=== PATIENT | male | born 1995 | race Caucasian/White ===

== ENCOUNTER 2016-11-12 13:27 | Emergency (ER) | payer OTHER ==
--- NOTE | 2016-11-12 14:11 | ED ORDER SUMMARY ---
..... Patient: KACIE PICKETT OrderSheet [facility] VisitID: [id number] [address] [place] [address] 20y, M Registration Date/Time: 11/12/2016 ORDER SHEET Weight: 74.8 kg (stated) Allergies: No Known Drug Allergy GENERAL ORDERS: Visual Acuity (14:07 11/12/2016 Leticia Ernandez) (14:20 Anthony Reveles) MEDICATION ORDERS: IV FLUIDS: ORDER SHEET NOTES: [Electronically signed by Bárbara Blair R.N. (14:11/12/2016)] [Electronically signed by Vidya Horta P.A.-C (14:11/12/2016)] [Electronically locked/signed by Bárbara Blair R.N. (14:11/12/2016)]
--- NOTE | 2016-11-12 14:11 | ED ORDER SUMMARY ---
..... Patient: KACIE PICKETT OrderSheet [facility] VisitID: [id number] [address] [place] [address] 20y, M Registration Date/Time: 11/12/2016 ORDER SHEET Weight: 74.8 kg (stated) Allergies: No Known Drug Allergy GENERAL ORDERS: Visual Acuity (14:07 11/12/2016 Leticia Ernandez) (14:20 Anthony Reveles) MEDICATION ORDERS: IV FLUIDS: ORDER SHEET NOTES: [Electronically signed by Bárbara Blair R.N. (14:11/12/2016)] [Electronically signed by Vidya Horta P.A.-C (14:11/12/2016)] [Electronically locked/signed by Bárbara Blair R.N. (14:11/12/2016)]
--- NOTE | 2016-11-12 14:11 | ED NURSING NOTES ---
Clinical Report - Nurses [facility] [address] [place] [address] 11/12/2016 13:30 Patient: KACIE PICKETT TRIAGE Triage time 13:45 Nov 12 2016. Acuity: LEVEL 4. Chief Complaint: FOREIGN BODY TO RIGHT EYE. --13:49 Bárbara Blair R.N. 13:45 11/12/16. BP: 128/58. HR: 83. RR: 16. O2 saturation: 100%. Temp: 97.9 F. Pain level now: 01/08. --13:49 Bárbara Blair R.N. 14:21 11/12/16. VISUAL ACUITY: Visual acuity performed without corrective lenses: left eye 20/30; right eye 20/30; both eyes 20/30. --14:21 Bárbara Blair R.N. Weight: 74.8 kg stated. Height/Length: 72 inches Per Patient. BMI: 22.4. --13:45 Bárbara Blair R.N. Medications None. --13:48 Bárbara Blair R.N. Medication/allergy information source: the patient. --13:49 Bárbara Blair R.N. Allergies No Known Drug Allergy. --13:48 Bárbara Blair R.N. History Arrived by private vehicle. Historian: patient. Accompanied by family. This started just prior to arrival. He sustained injury. 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 Flushed out eye immediately. [place] something scraping his eyelid and could see a dot on left side of iris. 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 PAST MEDICAL HX: Has had a prior eye injury. Immunizations: up-to-date. SOCIAL HX: Former smoker. No alcohol use or drug use. No infectious disease exposure. ABUSE ASSESSMENT: No report of abuse. SELF HARM ASSESSMENT: A self harm assessment was performed. The patient answered "no" to the question "Have you recently felt down, depressed, or hopeless?", "Have you noticed less interest or pleasure in doing things?", "Do you have thoughts of harming or killing yourself?", "Are you here because you tried to hurt yourself?", "Have you ever tried to hurt yourself before today?", "Have you recently had thoughts about harming or killing others?" and "Do you have any dangerous items in your possession?". FALL RISK ASSESSMENT: Fall risk assessment completed. No fall risk identified. NUTRITIONAL RISK ASSESSMENT: The nutritional risk assessment revealed no deficiencies. FUNCTIONAL ASSESSMENT: Functional assessment: no impairments noted. LEARNING NEEDS ASSESSMENT: The learning needs assessment revealed no barriers. SKIN INTEGRITY ASSESSMENT: Skin integrity risk assessment completed. No skin integrity risk identified. --13:49 Bárbara Blair R.N. PROBLEMS: Vomiting. Abnormal Liver Function Test. Corneal Foreign Body. --13:48 Bárbara Blair R.N. ADDITIONAL SURGERIES: no known surgeries. Interventions ID band on patient. --13:49 Bárbara Blair R.N. PHYSICAL ASSESSMENT 13:45 11/12/16. Ambulatory to room. GENERAL / NEURO / PSYCH: Alert. Appears in no acute distress. HEENT: No facial asymmetry noted. Pupils equal, round and reactive to light. Conjunctival findings present (WNL). EOM intact. No photophobia, pale conjunctivae or scleral icterus. SKIN: Skin is warm and dry. Normal skin turgor. --13:52 Bárbara Blair R.N. 13:45 11/12/16. GENERAL / NEURO / PSYCH: No double vision. HEENT: No visual field deficit or nystagmus. ( no FB visible). No ocular injury. --14:23 Bárbara Blair R.N. NURSING PROGRESS NOTES 13:45 11/12/16. The initial plan of care for this patient includes an assessment with efforts to address the presence of pain. This plan of care was discussed with the patient. Reassurance given. Patient identifiers checked. Side rails up x 1. Bed placed in lowest position. Brakes of bed on. Patient ready for evaluation. --13:57 Bárbara Blair R.N. DISPOSITION / DISCHARGE 14:22 11/12/16. Condition at departure: improved and stable. The goals identified in the patient's plan of care were met. No learning barriers present. Discharge instructions provided and reviewed with the patient. Reviewed medication(s) side effects, precautions, dosing and course information. Prescription(s) given to the patient. Reviewed referral to an county coroner for followup. Patient verbalized understanding. Written instructions provided in [place]. The patient was discharged home and accompanied by spouse. He left the Emergency Department ambulatory and via private vehicle. Patient driving. FALL RISK ASSESSMENT: Fall risk assessment completed. No fall risk identified. --14:22 Bárbara Blair R.N. 13:45 11/12/16. BP: 128/58. HR: 83. RR: 16. O2 saturation: 100%. Temp: 97.9 F. Pain level now: 01/08. --14:22 Bárbara Blair R.N. Departure time: 14:Nov 12 2016. --14:22 Bárbara Blair R.N. Locked/Released at 11/12/2016 14:23 by Bárbara Blair R.N.
--- NOTE | 2016-11-12 14:11 | ED NURSING NOTES ---
Clinical Report - Nurses [facility] [address] [place] [address] 11/12/2016 13:30 Patient: KACIE PICKETT TRIAGE Triage time 13:45 Nov 12 2016. Acuity: LEVEL 4. Chief Complaint: FOREIGN BODY TO RIGHT EYE. --13:49 Bárbara Blair R.N. 13:45 11/12/16. BP: 128/58. HR: 83. RR: 16. O2 saturation: 100%. Temp: 97.9 F. Pain level now: 01/08. --13:49 Bárbara Blair R.N. 14:21 11/12/16. VISUAL ACUITY: Visual acuity performed without corrective lenses: left eye 20/30; right eye 20/30; both eyes 20/30. --14:21 Bárbara Blair R.N. Weight: 74.8 kg stated. Height/Length: 72 inches Per Patient. BMI: 22.4. --13:45 Bárbara Blair R.N. Medications None. --13:48 Bárbara Blair R.N. Medication/allergy information source: the patient. --13:49 Bárbara Blair R.N. Allergies No Known Drug Allergy. --13:48 Bárbara Blair R.N. History Arrived by private vehicle. Historian: patient. Accompanied by family. This started just prior to arrival. He sustained injury. 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 Flushed out eye immediately. [place] something scraping his eyelid and could see a dot on left side of iris. 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 PAST MEDICAL HX: Has had a prior eye injury. Immunizations: up-to-date. SOCIAL HX: Former smoker. No alcohol use or drug use. No infectious disease exposure. ABUSE ASSESSMENT: No report of abuse. SELF HARM ASSESSMENT: A self harm assessment was performed. The patient answered "no" to the question "Have you recently felt down, depressed, or hopeless?", "Have you noticed less interest or pleasure in doing things?", "Do you have thoughts of harming or killing yourself?", "Are you here because you tried to hurt yourself?", "Have you ever tried to hurt yourself before today?", "Have you recently had thoughts about harming or killing others?" and "Do you have any dangerous items in your possession?". FALL RISK ASSESSMENT: Fall risk assessment completed. No fall risk identified. NUTRITIONAL RISK ASSESSMENT: The nutritional risk assessment revealed no deficiencies. FUNCTIONAL ASSESSMENT: Functional assessment: no impairments noted. LEARNING NEEDS ASSESSMENT: The learning needs assessment revealed no barriers. SKIN INTEGRITY ASSESSMENT: Skin integrity risk assessment completed. No skin integrity risk identified. --13:49 Bárbara Blair R.N. PROBLEMS: Vomiting. Abnormal Liver Function Test. Corneal Foreign Body. --13:48 Bárbara Blair R.N. ADDITIONAL SURGERIES: no known surgeries. Interventions ID band on patient. --13:49 Bárbara Blair R.N. PHYSICAL ASSESSMENT 13:45 11/12/16. Ambulatory to room. GENERAL / NEURO / PSYCH: Alert. Appears in no acute distress. HEENT: No facial asymmetry noted. Pupils equal, round and reactive to light. Conjunctival findings present (WNL). EOM intact. No photophobia, pale conjunctivae or scleral icterus. SKIN: Skin is warm and dry. Normal skin turgor. --13:52 Bárbara Blair R.N. 13:45 11/12/16. GENERAL / NEURO / PSYCH: No double vision. HEENT: No visual field deficit or nystagmus. ( no FB visible). No ocular injury. --14:23 Bárbara Blair R.N. NURSING PROGRESS NOTES 13:45 11/12/16. The initial plan of care for this patient includes an assessment with efforts to address the presence of pain. This plan of care was discussed with the patient. Reassurance given. Patient identifiers checked. Side rails up x 1. Bed placed in lowest position. Brakes of bed on. Patient ready for evaluation. --13:57 Bárbara Blair R.N. DISPOSITION / DISCHARGE 14:22 11/12/16. Condition at departure: improved and stable. The goals identified in the patient's plan of care were met. No learning barriers present. Discharge instructions provided and reviewed with the patient. Reviewed medication(s) side effects, precautions, dosing and course information. Prescription(s) given to the patient. Reviewed referral to an tool grinder operator external for followup. Patient verbalized understanding. Written instructions provided in Thai. The patient was discharged home and accompanied by spouse. He left the Emergency Department ambulatory and via private vehicle. Patient driving. FALL RISK ASSESSMENT: Fall risk assessment completed. No fall risk identified. --14:22 Bárbara Blair R.N. 13:45 11/12/16. BP: 128/58. HR: 83. RR: 16. O2 saturation: 100%. Temp: 97.9 F. Pain level now: 01/08. --14:22 Bárbara Blair R.N. Departure time: 14:Nov 12 2016. --14:22 Bárbara Blair R.N. Locked/Released at 11/12/2016 14:23 by Bárbara Blair R.N.
--- NOTE | 2016-11-12 14:11 | ED CLINICAL REPORT ---
Clinical Report - Physicians/Mid Levels Located Within [facility] [address] [address] 11/12/2016 13:30 Patient: KACIE PICKTET Time Seen: 1410Nov 12 2016. Arrived- By private vehicle. Historian- patient. HISTORY OF PRESENT ILLNESS Chief Complaint: EYE PAIN and REDNESS. This started just prior to arrival, involves the right eye and is characterized as mild. The patient did not sustain an injury. This occurred at work. Not injured from contact lenses. No direct trauma to the eyes. Eye pain and discomfort. ( patient was working, when he had a metal part fly into his right eye, and had foreign body sensation, tended to irrigate the eye at work, however had discomfort, on the way here, patient reports the sensation of FB resolved, the discomfort has been improving now. Similar history to the right eye of of days, with previous use of 2 years previously. no contact eye wearing. occurred just prior to arrival.). REVIEW OF SYSTEMS All systems otherwise negative, except as recorded above. PAST HISTORY Prior eye injury. He does not wear contact lenses. SOCIAL HISTORY Former smoker. No alcohol use or drug use. PHYSICAL EXAM Vital Signs: 11/12/2016 13:45 BP: 128/58. HR: 83. RR: 16. O2 saturation: 100%. Temp: 97.9 F. Pain level now: 3/10. Appearance: Alert. HEENT: Ears normal. Head appears normal to external inspection. Rt Eye: Circular shaped area of fluorescein dye uptake on the cornea (smallest medial aspect). Pupil not dilated. No hyphema, eyelid edema or erythema or conjunctival edema or foreign body. No EOM palsy. No stye present. No foreign body under the eyelid. No exudate present. Eyes: Visual acuity noted- see nurse's notes. Right eyelid everted for examination. Right cornea examined with fluorescein stain. Eyelids appear normal to inspection. Conjunctivae and sclerae appear normal to inspection. Corneas appear normal to inspection. Pupils equal, round and reactive to light. Accommodation normal. EOMs intact. Periorbital areas appear normal to inspection. Right eye examined with slit lamp. Anterior chambers clear. Lt Eye: Left eye exam normal. Neck: Neck supple. CVS: Normal heart rate and rhythm. Heart sounds normal. Respiratory: No respiratory distress. Breath sounds normal. Neuro: Oriented X 3. PROGRESS AND PROCEDURES Course of Care: patient here in the ER, with improvement of his symptoms, no signs of PE, small small small fluorescein uptake, consistent with recent injury and history. Patient will be covered with antibiotics, preventatively. Noncontact lens wearing, nonproductive lens wearing. no other signs of injury/ fb. 11/12/2016 13:45 BP: 128/58. HR: 83. RR: 16. O2 saturation: 100%. Temp: 97.9 F. Pain level now: 3/10. Patient is stable. Physical exam findings are improved. Symptoms better. Patient/family counseled. Disposition: Discharged. CLINICAL IMPRESSION Small corneal abrasion to the right eye. INSTRUCTIONS Do not work today, tomorrow. ([facility] ). Prescription Medications: Polytrim ophthalmic solution: Instill 1 drop into affected eye every 3 hours while awake (max 6 doses per day) for 1 week. Dispense five (5) mL. No refills. Substitution is permissible. OTC Medications: Take OTC medications according to label instructions. Available over the counter. Acetaminophen (available over the counter): take according to label instructions. Motrin (available over the counter): take according to label instructions. Follow-up: Follow up with your doctor in three days. (Electronically signed by Vidya Horta P.A.-C 11/12/2016 14:23)
--- NOTE | 2016-11-12 14:11 | ED CLINICAL REPORT ---
Clinical Report - Physicians/Mid Levels [facility] [address] [place] [address] 11/12/2016 13:30 Patient: KACIE PICKETT Time Seen: 1410Nov 12 2016. Arrived- By private vehicle. Historian- patient. HISTORY OF PRESENT ILLNESS Chief Complaint: EYE PAIN and REDNESS. This started just prior to arrival, involves the right eye and is characterized as mild. The patient did not sustain an injury. This occurred at work. Not injured from contact lenses. No direct trauma to the eyes. Eye pain and discomfort. ( patient was working, when he had a metal part fly into his right eye, and had foreign body sensation, tended to irrigate the eye at work, however had discomfort, on the way here, patient reports the sensation of FB resolved, the discomfort has been improving now. Similar history to the right eye of of days, with previous use of 2 years previously. no contact eye wearing. occurred just prior to arrival.). REVIEW OF SYSTEMS All systems otherwise negative, except as recorded above. PAST HISTORY Prior eye injury. He does not wear contact lenses. SOCIAL HISTORY Former smoker. No alcohol use or drug use. PHYSICAL EXAM Vital Signs: 11/12/2016 13:45 BP: 128/58. HR: 83. RR: 16. O2 saturation: 100%. Temp: 97.9 F. Pain level now: 3/10. Appearance: Alert. HEENT: Ears normal. Head appears normal to external inspection. Rt Eye: Circular shaped area of fluorescein dye uptake on the cornea (smallest medial aspect). Pupil not dilated. No hyphema, eyelid edema or erythema or conjunctival edema or foreign body. No EOM palsy. No stye present. No foreign body under the eyelid. No exudate present. Eyes: Visual acuity noted- see nurse's notes. Right eyelid everted for examination. Right cornea examined with fluorescein stain. Eyelids appear normal to inspection. Conjunctivae and sclerae appear normal to inspection. Corneas appear normal to inspection. Pupils equal, round and reactive to light. Accommodation normal. EOMs intact. Periorbital areas appear normal to inspection. Right eye examined with slit lamp. Anterior chambers clear. Lt Eye: Left eye exam normal. Neck: Neck supple. CVS: Normal heart rate and rhythm. Heart sounds normal. Respiratory: No respiratory distress. Breath sounds normal. Neuro: Oriented X 3. PROGRESS AND PROCEDURES Course of Care: patient here in the ER, with improvement of his symptoms, no signs of PE, small small small fluorescein uptake, consistent with recent injury and history. Patient will be covered with antibiotics, preventatively. Noncontact lens wearing, nonproductive lens wearing. no other signs of injury/ fb. 11/12/2016 13:45 BP: 128/58. HR: 83. RR: 16. O2 saturation: 100%. Temp: 97.9 F. Pain level now: 3/10. Patient is stable. Physical exam findings are improved. Symptoms better. Patient/family counseled. Disposition: Discharged. CLINICAL IMPRESSION Small corneal abrasion to the right eye. INSTRUCTIONS Do not work today, tomorrow. ([facility] ). Prescription Medications: Polytrim ophthalmic solution: Instill 1 drop into affected eye every 3 hours while awake (max 6 doses per day) for 1 week. Dispense five (5) mL. No refills. Substitution is permissible. OTC Medications: Take OTC medications according to label instructions. Available over the counter. Acetaminophen (available over the counter): take according to label instructions. Motrin (available over the counter): take according to label instructions. Follow-up: Follow up with your doctor in three days. (Electronically signed by Vidya Horta P.A.-C 11/12/2016 14:23)
--- NOTE | 2016-11-12 14:23 | ED MED RECONCILIATION SUMMARY ---
Patient: KACIE PICKETT Medication Reconciliation Report [facility] VisitID: [id number] [address] [place] [address] 20y, M Registration Date/Time: 11/12/2016 Weight: 74.8 kg Height/Length: 72 in. BMI: 22.4 ALLERGIES: No Known Drug Allergy The patient's Home Medications are listed below: NONE. The source(s) of the original Home Medication information: patient The following Medications were given to the patient in the Emergency Department: None. The following Medications were prescribed to the patient: Take OTC medications according to label instructions. Available over the counter. -- Vidya Horta, P.A.-C Acetaminophen (available over the counter): take according to label instructions. -- Vidya Horta, P.A.-C Motrin (available over the counter): take according to label instructions. -- Vidya Horta, P.A.-C Polytrim ophthalmic solution: Instill 1 drop into affected eye every 3 hours while awake (max 6 doses per day) for 1 week. Dispense five (5) mL. No refills. Substitution is permissible. -- Vidya Horta, P.A.-C
--- NOTE | 2016-11-12 14:23 | ED MAR SUMMARY ---
..... Medication Administration Record [facility] [address] [place] [id number] Patient: KACIE PICKETT Visit ID: [id number] 20y, M Weight: 74.8 kg Height/Length: 72 in BMI: 22.4 ALLERGIES: No Known Drug Allergy
--- NOTE | 2016-11-12 14:23 | ED DISCHARGE INSTRUCTIONS ---
Patient: KACIE PICKETT General Instructions [facility] VisitID: [id number] [place] [address] 20y, M Registration Date/Time: 11/12/2016 Small corneal abrasion to the right eye. INSTRUCTIONS Do not work today, tomorrow. ([facility] ). Prescription Medications: Polytrim ophthalmic solution: Instill 1 drop into affected eye every 3 hours while awake (max 6 doses per day) for 1 week. Dispense five (5) mL. No refills. Substitution is permissible. OTC Medications: Take OTC medications according to label instructions. Available over the counter. Acetaminophen (available over the counter): take according to label instructions. Motrin (available over the counter): take according to label instructions. Follow-up: Follow up with your doctor in three days. ADDITIONAL INFORMATION Corneal Abrasion The cornea is the clear part in the front of the eye. This sensitive area is very painful when injured. There may be tearing and your vision may be blurry until healing occurs. You may be sensitive to light. This part of the body heals quickly. You can expect the pain to go away within 24-48 hours. If the abrasion is large or deep, your doctor may apply an eye patch, although this is not always done. An antibiotic ointment or eye drops may also be used to prevent infection. Numbing drops may be used to relieve the pain temporarily so that your eyes can be examined. However, these drops cannot be prescribed for home use because that would slow down the healing process. Also, if you cant feel your eye, there is a chance of accidentally injuring your eye further without knowing it. Home Care: A cold pack (ice in a plastic bag, wrapped in a towel) may be applied over the eye (or eyepatch) for 20 minutes at a time, to reduce pain. You may use acetaminophen (Tylenol) or ibuprofen (Motrin, Advil) to control pain, unless another pain medicine was prescribed. [NOTE: If you have chronic liver or kidney disease or ever had a stomach ulcer or GI bleeding, talk with your doctor before using these medicines.] Rest your eyes and do not read until symptoms are gone. If you use contact lenses, do not wear them until all symptoms are gone. If your vision is affected by the corneal abrasion or if an eyepatch was applied, DO NOT DRIVE a motor vehicle or operate machinery until all symptoms are gone. Otherwise, you would have trouble judging distances with only one eye. If your eyes are sensitive to light, try wearing sunglasses, or stay indoors, until symptoms go away. Follow Up as advised by our staff. Serious abrasions may be referred to an auto clutch specialist (c engineer). If no patch was used but the pain continues for more than 48 hours, you should have another exam. Return to this facility or contact the referral doctor to arrange this. If your eye was patched and if you were asked to remove the patch yourself, see your doctor or return to this facility if your pain is still present after the patch is removed. If you were given a return appointment for patch removal and re-exam, do not miss this. It could be harmful if the patch remains in place longer than advised. Get Prompt Medical Attention if any of the following occur: Increasing eye pain or pain that does not improve after 24 hours Discharge from the eye Increasing redness of the eye or swelling of the eyelids Your vision gets worse You have been given the following additional information: Corneal Abrasion Do not work today, tomorrow. (Electronically signed by Vidya Horta P.A.-C 11/12/2016 14:23)
--- NOTE | 2016-11-12 14:23 | ED DISCHARGE INSTRUCTIONS ---
Patient: KACIE PICKETT General Instructions [facility] VisitID: [id number] [place] [address] 20y, M Registration Date/Time: 11/12/2016 Small corneal abrasion to the right eye. INSTRUCTIONS Do not work today, tomorrow. (cool packs [facility] as needed ). Prescription Medications: Polytrim ophthalmic solution: Instill 1 drop into affected eye every 3 hours while awake (max 6 doses per day) for 1 week. Dispense five (5) mL. No refills. Substitution is permissible. OTC Medications: Take OTC medications according to label instructions. Available over the counter. Acetaminophen (available over the counter): take according to label instructions. Motrin (available over the counter): take according to label instructions. Follow-up: Follow up with your doctor in three days. ADDITIONAL INFORMATION Corneal Abrasion The cornea is the clear part in the front of the eye. This sensitive area is very painful when injured. There may be tearing and your vision may be blurry until healing occurs. You may be sensitive to light. This part of the body heals quickly. You can expect the pain to go away within 24-48 hours. If the abrasion is large or deep, your doctor may apply an eye patch, although this is not always done. An antibiotic ointment or eye drops may also be used to prevent infection. Numbing drops may be used to relieve the pain temporarily so that your eyes can be examined. However, these drops cannot be prescribed for home use because that would slow down the healing process. Also, if you cant feel your eye, there is a chance of accidentally injuring your eye further without knowing it. Home Care: A cold pack (ice in a plastic bag, wrapped in a towel) may be applied over the eye (or eyepatch) for 20 minutes at a time, to reduce pain. You may use acetaminophen (Tylenol) or ibuprofen (Motrin, Advil) to control pain, unless another pain medicine was prescribed. [NOTE: If you have chronic liver or kidney disease or ever had a stomach ulcer or GI bleeding, talk with your doctor before using these medicines.] Rest your eyes and do not read until symptoms are gone. If you use contact lenses, do not wear them until all symptoms are gone. If your vision is affected by the corneal abrasion or if an eyepatch was applied, DO NOT DRIVE a motor vehicle or operate machinery until all symptoms are gone. Otherwise, you would have trouble judging distances with only one eye. If your eyes are sensitive to light, try wearing sunglasses, or stay indoors, until symptoms go away. Follow Up as advised by our staff. Serious abrasions may be referred to an azure principal solution specialist (foundry hand). If no patch was used but the pain continues for more than 48 hours, you should have another exam. Return to this facility or contact the referral doctor to arrange this. If your eye was patched and if you were asked to remove the patch yourself, see your doctor or return to this facility if your pain is still present after the patch is removed. If you were given a return appointment for patch removal and re-exam, do not miss this. It could be harmful if the patch remains in place longer than advised. Get Prompt Medical Attention if any of the following occur: Increasing eye pain or pain that does not improve after 24 hours Discharge from the eye Increasing redness of the eye or swelling of the eyelids Your vision gets worse You have been given the following additional information: Corneal Abrasion Do not work today, tomorrow. (Electronically signed by Vidya Horta P.A.-C 11/12/2016 14:23)
--- NOTE | 2016-11-12 14:23 | ED MAR SUMMARY ---
..... Medication Administration Record [facility] [address] [place] [id number] Patient: KACIE PICKETT Visit ID: [id number] 20y, M Weight: 74.8 kg Height/Length: 72 in BMI: 22.4 ALLERGIES: No Known Drug Allergy
--- NOTE | 2016-11-12 14:23 | ED MED RECONCILIATION SUMMARY ---
Patient: KACIE PICKETT Medication Reconciliation Report [facility] VisitID: [id number] [address] [place] [address] 20y, M Registration Date/Time: 11/12/2016 Weight: 74.8 kg Height/Length: 72 in. BMI: 22.4 ALLERGIES: No Known Drug Allergy The patient's Home Medications are listed below: NONE. The source(s) of the original Home Medication information: patient The following Medications were given to the patient in the Emergency Department: None. The following Medications were prescribed to the patient: Take OTC medications according to label instructions. Available over the counter. -- Vidya Horta, P.A.-C Acetaminophen (available over the counter): take according to label instructions. -- Vidya Horta, P.A.-C Motrin (available over the counter): take according to label instructions. -- Vidya Horta, P.A.-C Polytrim ophthalmic solution: Instill 1 drop into affected eye every 3 hours while awake (max 6 doses per day) for 1 week. Dispense five (5) mL. No refills. Substitution is permissible. -- Vidya Horta, P.A.-C
== END 2016-11-12 14:23 | disposition home or self-care (01) ==
LOC: ED SRH 13:27
DX: S05.01XA Injury of conjunctiva and corneal abrasion without foreign body, right eye, initial encounter (principal); W26.8XXA Contact with other sharp object(s), not elsewhere classified, initial encounter; Y93.9 Activity, unspecified; Y92.9 Unspecified place or not applicable; Y99.0 Civilian activity done for income or pay; Z87.891 Personal history of nicotine dependence

== ENCOUNTER 2017-04-18 20:11 | Emergency (ER) | payer OTHER ==
--- NOTE | 2017-04-18 22:45 | ED NURSING NOTES ---
Clinical Report - Nurses [facility] [address] [place] [address] 04/18/2017 20:12 Patient: KACIE PICKETT TRIAGE Triage time 20:54 Apr 18 2017. Acuity: LEVEL 3. Chief Complaint: FEVER, CHILLS, SWEATS and "NOT FEELING WELL". Alert. NICOLE COMA SCORE: Dyke Coma Scale: 15- eyes open spontaneously (4); best verbal response- oriented x 4 (5); best motor response- obeys commands (6). --21:07 Jean-Paul Cheek R.N. 20:54 04/18/17. BP: 127/73. HR: 81 (regular and normal rate). RR: 16. O2 saturation: 100% on room air. Temp: 100.9 F. Pain level now: 2/10. Additional comments: Body aches. --21:07 Jean-Paul Cheek R.N. Weight: 79.3 kg stated. Height/Length: 71 inches Per Patient. BMI: 24.4. --21:00 Jean-Paul Cheek R.N. Medications Dayquil, 3x a day. --20:59 Jean-Paul Cheek R.N. Multivitamins Oral 1 pill, daily. --21:00 Jean-Paul Cheek R.N. Medication/allergy information source: the patient. --21:07 Jean-Paul Cheek R.N. Allergies No Known Drug Allergy. --20:59 Jean-Paul Cheek R.N. History Arrived by private vehicle. Historian: patient. Accompanied by family. Primary physician ([place], [place]). ( Fever, MCKEON, cough expectorating-colored sputum for the last four days (the mucus epectoration for the last three days). He also states that there is green mucus for the last two).;). Onset. (about 3 days ago). He has had a cough. Treatment FOAMITE MIXER: (Mucinex, Vitamin C, Nyquill Cold and flu). PAST MEDICAL HX: Immunizations: status is unknown. SURGERY HX: No history of previous surgery. SOCIAL HX: Former smoker, end date 09/2016. No alcohol use or drug use. No recent travel. No infectious disease exposure. ABUSE ASSESSMENT: No report of abuse. FALL RISK ASSESSMENT: Fall risk assessment completed. No fall risk identified. NUTRITIONAL RISK ASSESSMENT: The nutritional risk assessment revealed no deficiencies. FUNCTIONAL ASSESSMENT: Functional assessment: no impairments noted. LEARNING NEEDS ASSESSMENT: The learning needs assessment revealed no barriers. SKIN INTEGRITY ASSESSMENT: Skin integrity risk assessment completed. No skin integrity risk identified. --21:07 Jean-Paul Cheek R.N. PROBLEMS: IBS. Corneal Abrasion. Eye Injury. Diarrhea. Vomiting. Abnormal Liver Function Test. Corneal Foreign Body. --21: Jean-Paul Cheek R.N. Interventions ID band on patient. To treatment room. --21: Jean-Paul Cheek R.N. PHYSICAL ASSESSMENT Ambulatory to room. GENERAL / NEURO / PSYCH: Alert. Oriented X 4. HEENT: Mucous membranes are pink. RESPIRATORY: Respirations not labored. Chest nontender. Breath sounds within normal limits. CVS: Cardiac rhythm: (RRR). Pulses within normal limits. GI / : Abdomen soft and nontender and normal bowel sounds. SKIN: Skin intact. Skin is warm and dry. Normal skin turgor. --21:09 Jean-Paul Cheek R.N. NURSING PROGRESS NOTES Patient gowned. Reassurance given. Patient identifiers checked. Call light placed in reach. Side rails up x 1. Bed placed in lowest position. Brakes of bed on. Patient ready for evaluation- chart flagged and ED physician notified. --21:09 Jean-Paul Cheek R.N. ( Provider and RN to room to visit patient and patient not in room. Patient found out in lobby at [facility]. Patient in room at this time.). --22:39 Lady Cunningham 22:54 04/18/2017 Acetaminophen (APAP) PO Tablets 1000 mg given. Allergies verified and confirmed 5 rights. --22:59 Lady Cunningham. DISPOSITION / DISCHARGE 23:00 04/18/17. Condition at departure: stable. The goals identified in the patient's plan of care were met. No learning barriers present. Discharge instructions provided and reviewed with cleaner industrial and the patient. Reviewed medication(s) side effects, precautions, dosing and course information. Prescription(s) given to the patient. Reviewed eye care instructions. Reviewed need for increased fluid intake. Patient verbalized understanding. Written instructions provided in Malaysian. ( Follow up with your PCP in 5 days. Saline sinus wash as discussed with provider. Take medications as prescribed. Discussed eye care and prevention of spreading infection to others. Patient and spouse verbalized understanding and had no additional questions at this time.). The patient was discharged by the nurse practitioner. He was discharged home and accompanied by cleaner industrial. He left the Emergency Department ambulatory and via private vehicle. Bar Hostess driving. FALL RISK ASSESSMENT: Fall risk assessment completed. No fall risk identified. --03:17 Lady Cunningham 23:00 04/18/17. BP: 129/77. HR: 94. RR: 20. O2 saturation: 98% on room air. Temp: 98.9 F (oral). --03:17 Lady Cunningham. Locked/Released at 04/19/2017 3:59 by Lady Cunningham,
--- NOTE | 2017-04-18 22:45 | ED NURSING NOTES ---
Clinical Report - Nurses [facility] [address] [place] [address] 04/18/2017 20:12 Patient: KACIE PICKETT TRIAGE Triage time 20:54 Apr 18 2017. Acuity: LEVEL 3. Chief Complaint: FEVER, CHILLS, SWEATS and "NOT FEELING WELL". Alert. NICOLE COMA SCORE: Mccall Coma Scale: 15- eyes open spontaneously (4); best verbal response- oriented x 4 (5); best motor response- obeys commands (6). --21:07 Jean-Paul Cheek R.N. 20:54 04/18/17. BP: 127/73. HR: 81 (regular and normal rate). RR: 16. O2 saturation: 100% on room air. Temp: 100.9 F. Pain level now: 2/10. Additional comments: Body aches. --21:07 Jean-Paul Cheek R.N. Weight: 79.3 kg stated. Height/Length: 71 inches Per Patient. BMI: 24.4. --21:00 Jean-Paul Cheek R.N. Medications Dayquil, 3x a day. --20:59 Jean-Paul Cheek R.N. Multivitamins Oral 1 pill, daily. --21:00 Jean-Paul Cheek R.N. Medication/allergy information source: the patient. --21:07 Jean-Paul Cheek R.N. Allergies No Known Drug Allergy. --20:59 Jean-Paul Cheek R.N. History Arrived by private vehicle. Historian: patient. Accompanied by family. Primary physician ([place], [place]). ( Fever, MCKEON, cough expectorating-colored sputum for the last four days (the mucus epectoration for the last three days). He also states that there is green mucus for the last two).;). Onset. (about 3 days ago). He has had a cough. Treatment EVENTS ASSISTANT: (Mucinex, Vitamin C, Nyquill Cold and flu). PAST MEDICAL HX: Immunizations: status is unknown. SURGERY HX: No history of previous surgery. SOCIAL HX: Former smoker, end date 09/2016. No alcohol use or drug use. No recent travel. No infectious disease exposure. ABUSE ASSESSMENT: No report of abuse. FALL RISK ASSESSMENT: Fall risk assessment completed. No fall risk identified. NUTRITIONAL RISK ASSESSMENT: The nutritional risk assessment revealed no deficiencies. FUNCTIONAL ASSESSMENT: Functional assessment: no impairments noted. LEARNING NEEDS ASSESSMENT: The learning needs assessment revealed no barriers. SKIN INTEGRITY ASSESSMENT: Skin integrity risk assessment completed. No skin integrity risk identified. --21:07 Jean-Paul Cheek R.N. PROBLEMS: IBS. Corneal Abrasion. Eye Injury. Diarrhea. Vomiting. Abnormal Liver Function Test. Corneal Foreign Body. --21: Jean-Paul Cheek R.N. Interventions ID band on patient. To treatment room. --21: Jean-Paul Cheek R.N. PHYSICAL ASSESSMENT Ambulatory to room. GENERAL / NEURO / PSYCH: Alert. Oriented X 4. HEENT: Mucous membranes are pink. RESPIRATORY: Respirations not labored. Chest nontender. Breath sounds within normal limits. CVS: Cardiac rhythm: (RRR). Pulses within normal limits. GI / : Abdomen soft and nontender and normal bowel sounds. SKIN: Skin intact. Skin is warm and dry. Normal skin turgor. --21:09 Jean-Paul Cheek R.N. NURSING PROGRESS NOTES Patient gowned. Reassurance given. Patient identifiers checked. Call light placed in reach. Side rails up x 1. Bed placed in lowest position. Brakes of bed on. Patient ready for evaluation- chart flagged and ED physician notified. --21:09 Jean-Paul Cheek R.N. ( Provider and RN to room to visit patient and patient not in room. Patient found out in lobby at [employer]. Patient in room at this time.). --22:39 Lady Cunningham 22:54 04/18/2017 Acetaminophen (APAP) PO Tablets 1000 mg given. Allergies verified and confirmed 5 rights. --22:59 Lady Cunningham. DISPOSITION / DISCHARGE 23:00 04/18/17. Condition at departure: stable. The goals identified in the patient's plan of care were met. No learning barriers present. Discharge instructions provided and reviewed with blanket winder operator and the patient. Reviewed medication(s) side effects, precautions, dosing and course information. Prescription(s) given to the patient. Reviewed eye care instructions. Reviewed need for increased fluid intake. Patient verbalized understanding. Written instructions provided in Kyrgyz. ( Follow up with your PCP in 5 days. Saline sinus wash as discussed with provider. Take medications as prescribed. Discussed eye care and prevention of spreading infection to others. Patient and spouse verbalized understanding and had no additional questions at this time.). The patient was discharged by the nurse practitioner. He was discharged home and accompanied by blanket winder operator. He left the Emergency Department ambulatory and via private vehicle. Hydraulic Jack Mechanic driving. FALL RISK ASSESSMENT: Fall risk assessment completed. No fall risk identified. --03:17 Lady Cunningham 23:00 04/18/17. BP: 129/77. HR: 94. RR: 20. O2 saturation: 98% on room air. Temp: 98.9 F (oral). --03:17 Lady Cunningham. Locked/Released at 04/19/2017 3:59 by Lady Cunningham,
--- NOTE | 2017-04-18 22:45 | ED CLINICAL REPORT ---
Clinical Report - Physicians/Mid Levels [facility] [address] [place] [address] 04/18/2017 20:12 Patient: KACIE PICKETT Time Seen: 21:52; initial patient contact, initial documentation, patient care assumed. Arrived- By private vehicle. Historian- patient. HISTORY OF PRESENT ILLNESS Chief Complaint: COUGH, SINUS PAIN, FEVER and CHILLS. This started about 3 days ago and is still present and worsening. The illness is described as moderate. The patient has had a cough, a sore throat, nasal congestion, sinus pressure and sinus drainage. He has had fever with chills and sweating, chills, a nasal discharge and ear pain. He has had moderate amounts of yellow, green sputum. No difficulty breathing, chest discomfort or pain, muscle aches or hoarseness. Additional history - The patient has had contact with a sick significant other. Symptoms of the sick contact include cough. They have had similar symptoms. No recent travel. Similar symptoms previously: None. Recent medical care: Not recently seen/assessed. REVIEW OF SYSTEMS The patient has had a pressure-like frontal headache. He has had moderate eye discomfort involving the right eye and left eye with "pain", discharge and red eye. No vomiting or diarrhea. All systems otherwise negative, except as recorded above. PAST HISTORY See nurses notes. PROBLEMS: IBS. Corneal Abrasion. Eye Injury. Diarrhea. Vomiting. Abnormal Liver Function Test. Corneal Foreign Body. --21:01 Jean-Paul Cheek RNey. SOCIAL HISTORY Former smoker. Not exposed to second-hand smoke at home. No alcohol use or drug use. No recent travel. Is a local resident. FAMILY HISTORY Negative. ADDITIONAL NOTES The nursing notes have been reviewed with agreement regarding the chief complaint, HPI, ROS, PMH and patient medications and allergies. PHYSICAL EXAM Vital Signs: 04/18/2017 20:54 BP: 127/73. HR: 81. RR: 16. O2 saturation: 100%. Temp: 100.9 F. Pain level now: 2/10. Have been reviewed as abnormal and appear to be correct. Blood pressure normal. Heart rate normal. Respiratory rate normal. Febrile. Oxygen saturation normal. Appearance: Alert. No acute distress. Head: Tenderness present to percussion/palpation of the sinuses: mild right and left frontal tenderness, ethmoid tenderness. Eyes: Pupils equal, round and reactive to light. Eyes inspection not normal. Moderate redness of the right conjunctiva and moderate, thick, purulent exudate on the right; mild redness of the left conjunctiva and mild, thick, purulent exudate on the left. ENT: Ears not normal. Left TM reveals bulging. Nose abnormal. Minimal nasal discharge present (and congestion). Pharynx abnormal. Mild generalized pharyngeal erythema (with post nasal drip). No right tonsillar exudate, right tonsillar abscess, right tonsillar swelling, right peritonsillitis, left tonsillar exudate, left tonsillar abscess, left tonsillar swelling or left peritonsillitis. Uvula midline. Neck: Normal inspection. Neck supple. CVS: Normal heart rate and rhythm. Heart sounds normal. Pulses normal. Respiratory: No respiratory distress. Breath sounds normal. Abdomen: Soft and nontender. No organomegaly. Back: Normal inspection. Skin: Skin warm and dry. Normal skin color. No rash. Normal skin turgor. Extremities: Extremities exhibit normal ROM. No lower extremity edema. Neuro: Oriented X 3. No motor deficit. No sensory deficit. PROGRESS AND PROCEDURES Patient and spouse counseled in person regarding the patient's stable condition and diagnosis. Differential Diagnosis: Other possible considerations: flu, viral illness, allergies, conjunctivitis, bronchitis, pneumonia, sinusitis, pharyngitis, aoe, aom. Above considerations are based on history and physical exam. Differential diagnosis was discussed with patient and patient's spouse. Disposition: Discharged home in good and improved condition (22:44). Condition: good and stable. CLINICAL IMPRESSION Acute ethmoidal and frontal sinusitis Acute fever Acute mucopurulent conjunctivitis of the right eye and left eye. INSTRUCTIONS Alternate Tylenol (Acetaminophen) and Motrin (Ibuprofen) for fever, temperature greater than 101 degrees orally. Take according to label instructions. Do not work today, for two days. Drink plenty of fluids for the next 24 hours until better. Do not smoke. (saline sinus wash as discussed). Warnings: GENERAL WARNINGS: Return or contact your physician immediately if your condition worsens or changes unexpectedly, if not improving as expected, or if other problems arise. Specifically return if problem worsens. Prescription Medications: Nasacort nasal spray: 2 sprays in each nostril once daily as needed for allergies. Dispense one (1) unit. No refills. Substitution is permissible. Augmentin 875 mg: take 1 tablet orally every 12 hours for 10 days. No refill. Motrin 600 mg tablets: take 1 tablet orally every 6 hours as needed for pain or fever. Dispense thirty (30). No refill. Polytrim ophthalmic solution: Instill 1 drop into affected eye every 3 hours while awake (max 6 doses per day) for 1 week. Dispense five (5) mL. No refills. Substitution is permissible. Follow-up: Follow up with your doctor in about five days even if well. Call for an appointment. Summary of care provided to patient. Understanding of the discharge instructions verbalized by patient. (Electronically signed by Louise Enamorado A.R.N.P. 04/18/2017 23:49)
--- NOTE | 2017-04-19 03:59 | ED ORDER SUMMARY ---
..... Patient: KACIE PICKETT OrderSheet [facility] VisitID: [id number] [address] [place] [address] 21y, M Registration Date/Time: 04/18/2017 ORDER SHEET Weight: 79.3 kg (stated) Allergies: No Known Drug Allergy GENERAL ORDERS: MEDICATION ORDERS: Acetaminophen PO 1,000 mg (NOW) (22:44 04/18/2017 HBivens A.R.N.P.) (22:59 HSoule) IV FLUIDS: ORDER SHEET NOTES: [Electronically signed by Louise Enamorado A.R.N.P. (23:49 04/18/2017)] [Electronically signed by Lady Cunningham (03:59 04/19/2017)] [Electronically locked/signed by Lady Cunningham (03:59 04/19/2017)]
--- NOTE | 2017-04-19 03:59 | ED MED RECONCILIATION SUMMARY ---
Patient: KACIE PICKETT Medication Reconciliation Report [facility] VisitID: [id number] [address] [place] [address] 21y, M Registration Date/Time: 04/18/2017 Weight: 79.3 kg Height/Length: 71 in. BMI: 24.4 ALLERGIES: No Known Drug Allergy The patient's Home Medications are listed below: THE FOLLOWING MEDICATIONS NEED TO BE RECONCILED: Dayquil, 3x a day Multivitamins Oral 1 pill, daily The source(s) of the original Home Medication information: patient The following Medications were given to the patient in the Emergency Department: Acetaminophen [PO] PO 1000 mg, administered: 04/18/2017 10:54:00 PM The following Medications were prescribed to the patient: Nasacort nasal spray: 2 sprays in each nostril once daily as needed for allergies. Dispense one (1) unit. No refills. Substitution is permissible. -- Louise Enamorado, A.R.N.P. Augmentin 875 mg: take 1 tablet orally every 12 hours for 10 days. No refill. -- Louise Enamorado, A.R.N.P. Motrin 600 mg tablets: take 1 tablet orally every 6 hours as needed for pain or fever. Dispense thirty (30). No refill. -- Louise Enamorado, Ashok.R.N.P. Polytrim ophthalmic solution: Instill 1 drop into affected eye every 3 hours while awake (max 6 doses per day) for 1 week. Dispense five (5) mL. No refills. Substitution is permissible. -- Louise Enamorado A.R.N.P.
--- NOTE | 2017-04-19 03:59 | ED MAR SUMMARY ---
..... Medication Administration Record [address] [place] [address] Patient: KACIE PICKETT Visit ID: [id number] 21y, M Weight: 79.3 kg Height/Length: 71 in BMI: 24.4 ALLERGIES: No Known Drug Allergy Given 22:54 04/18/2017 Lady Cunningham, Medication Administered: ACETAMINOPHEN [PO] (APAP), Dose: 1000 mg Tablets PO. Medication Ordered: Acetaminophen PO 1,000 mg (NOW).
--- NOTE | 2017-04-19 03:59 | ED MAR SUMMARY ---
..... Medication Administration Record [address] [place] [address] Patient: KACIE PICKETT Visit ID: [id number] 21y, M Weight: 79.3 kg Height/Length: 71 in BMI: 24.4 ALLERGIES: No Known Drug Allergy Given 22:54 04/18/2017 Lady Cunningham, Medication Administered: ACETAMINOPHEN [PO] (APAP), Dose: 1000 mg Tablets PO. Medication Ordered: Acetaminophen PO 1,000 mg (NOW).
--- NOTE | 2017-04-19 03:59 | ED MED RECONCILIATION SUMMARY ---
Patient: KACIE PICKETT Medication Reconciliation Report [facility] VisitID: [id number] [address] [place] [address] 21y, M Registration Date/Time: 04/18/2017 Weight: 79.3 kg Height/Length: 71 in. BMI: 24.4 ALLERGIES: No Known Drug Allergy The patient's Home Medications are listed below: THE FOLLOWING MEDICATIONS NEED TO BE RECONCILED: Dayquil, 3x a day Multivitamins Oral 1 pill, daily The source(s) of the original Home Medication information: patient The following Medications were given to the patient in the Emergency Department: Acetaminophen [PO] PO 1000 mg, administered: 04/18/2017 10:54:00 PM The following Medications were prescribed to the patient: Nasacort nasal spray: 2 sprays in each nostril once daily as needed for allergies. Dispense one (1) unit. No refills. Substitution is permissible. -- Louise Enamorado, A.R.N.P. Augmentin 875 mg: take 1 tablet orally every 12 hours for 10 days. No refill. -- Louise Enamorado, A.R.N.P. Motrin 600 mg tablets: take 1 tablet orally every 6 hours as needed for pain or fever. Dispense thirty (30). No refill. -- Louise Enamorado, Ashok.R.N.P. Polytrim ophthalmic solution: Instill 1 drop into affected eye every 3 hours while awake (max 6 doses per day) for 1 week. Dispense five (5) mL. No refills. Substitution is permissible. -- Louise Enamorado A.R.N.P.
--- NOTE | 2017-04-19 03:59 | ED ORDER SUMMARY ---
..... Patient: KACIE PICKETT OrderSheet [facility] VisitID: [id number] [address] [place] [address] 21y, M Registration Date/Time: 04/18/2017 ORDER SHEET Weight: 79.3 kg (stated) Allergies: No Known Drug Allergy GENERAL ORDERS: MEDICATION ORDERS: Acetaminophen PO 1,000 mg (NOW) (22:44 04/18/2017 HBivens A.R.N.P.) (22:59 HSoule) IV FLUIDS: ORDER SHEET NOTES: [Electronically signed by Louise Enamorado A.R.N.P. (23:49 04/18/2017)] [Electronically signed by Lady Cunningham (03:59 04/19/2017)] [Electronically locked/signed by Lady Cunningham (03:59 04/19/2017)]
--- NOTE | 2017-04-19 03:59 | ED DISCHARGE INSTRUCTIONS ---
Patient: KACIE PICKETT General Instructions [facility] VisitID: [id number] [place] [address] 21y, M Registration Date/Time: 04/18/2017 Acute ethmoidal and frontal sinusitis Acute fever INSTRUCTIONS Alternate Tylenol (Acetaminophen) and Motrin (Ibuprofen) for fever, temperature greater than 101 degrees orally. Take according to label instructions. Do not work today, for two days. Drink plenty of fluids for the next 24 hours until better. Do not smoke. (saline sinus wash as discussed). Warnings: GENERAL WARNINGS: Return or contact your physician immediately if your condition worsens or changes unexpectedly, if not improving as expected, or if other problems arise. Specifically return if problem worsens. Prescription Medications: Nasacort nasal spray: 2 sprays in each nostril once daily as needed for allergies. Dispense one (1) unit. No refills. Substitution is permissible. Augmentin 875 mg: take 1 tablet orally every 12 hours for 10 days. No refill. Motrin 600 mg tablets: take 1 tablet orally every 6 hours as needed for pain or fever. Dispense thirty (30). No refill. Polytrim ophthalmic solution: Instill 1 drop into affected eye every 3 hours while awake (max 6 doses per day) for 1 week. Dispense five (5) mL. No refills. Substitution is permissible. Follow-up: Follow up with your doctor in about five days even if well. Call for an appointment. Summary of care provided to patient. Understanding of the discharge instructions verbalized by patient. ADDITIONAL INFORMATION Febrile Illness, Uncertain Cause (Adult) You have a fever, but the cause is not certain. A fever is a natural reaction of the body to an illness such as infections due to a virus or bacteria. In most cases, the temperature itself is not harmful. It actually helps the body fight infections. A fever does not need to be treated unless you feel very uncomfortable. Sometimes a fever can be an early sign of a more serious infection. Therefore, you should watch for the signs listed below. Home Care: If signs and symptoms are severe, rest at home for the first 2-3 days. When you resume activity, don't let yourself get too tired. Stay away from cigarette smoke (yours and other peoples). You may use acetaminophen (Tylenol) or ibuprofen (Motrin, Advil) to control fever or pain, unless another medicine was prescribed. NOTE: If you have chronic liver or kidney disease or ever had a stomach ulcer or GI bleeding, talk with your doctor before using these medicines. (Aspirin should never be used in anyone under 18 years of age who is ill with a fever. It may cause severe liver damage.) Your appetite may be poor, so a light diet is fine. Avoid dehydration by drinking 6-8 glasses of fluid per day (water, sport drinks such as Gatorade, sodas without caffeine, juices, tea, soup). Extra fluid will help loosen secretions in the nose and lungs. Rtfx-jjr-kicxmny products will not shorten the duration of the illness but may be helpful for the following symptoms: cough (Robitussin DM); sore throat (Chloraseptic lozenges or spray); nasal and sinus congestion (Actifed or Sudafed). NOTE: Do not use decongestants if you have high blood pressure. Follow Up with your doctor or as advised if you do not start to improve over the next week. Get Prompt Medical Attention if any of the following occur: Cough with lots of colored sputum (mucus) or blood in your sputum Chest pain, shortness of breath, wheezing or difficulty breathing Severe headache, face, neck, throat or ear pain Feeling drowsy or confused Abdominal pain, repeated vomiting or diarrhea Joint pain or a new rash Burning when urinating Fever of 100.4F (38C) oral or higher, not better with fever medication Feeling weak or dizzy Convulsion Fever Control (Child) A fever is a natural reaction of the body to an illness. Your conchita temperature itself usually isnt harmful. A fever actually helps the body fight infections. A fever usually doesnt need to be treated unless your child is uncomfortable and looks and acts sick. Or if your child has a chronic health condition or has had febrile seizures in the past. Home care If your child feels hot, check his or her temperature: [place] to 5 months of age, check rectal or forehead (temporal) temperature 6 months to 3 years, check rectal, forehead, or ear temperature 4 years and older, check rectal, forehead, ear, or oral temperature Note: Rectal temperature is the most reliable temperature for infants up to 2 months old. You shouldnt use other items like plastic strips or pacifier thermometers. These are less accurate. If you dont know how to use a thermometer, ask your conchita nurse or pharmacist. Keep your child dressed in lightweight clothing. This is to help your child lose the excess body heat. The fever will go up if you dress your child in extra layers or wrap your child in blankets. Fever causes the body to lose water. For infants under 1 year old, keep giving regular formula or breast feedings. Between feedings, give oral rehydration solution. You can get this at the grocery or drugstore without a prescription. For children1 year or older, give plenty of fluids. Good fluids include water, juice, gelatin water, non-caffeinated soft drinks, seth gabbi, lemonade, fruit drinks, and frozen fruit pops. Fever medications Watch how your child is acting and feeling. You dont need to give fever medication if your child is active and alert, and is eating and drinking. You may need to give fever medicine if your child has a chronic health condition or has had febrile seizures in the past. Talk with your [place] health care provider about when to treat your conchita fever. You may give acetaminophen or ibuprofen if your child: Becomes less and less active Looks and acts sick Isnt sleeping, drinking, or eating as usual Has a temperature of 100.4F (38C) or higher Use the dose recommended by your con[place]ita health care provider or the dose listed on the medicine bottle label for your conchita age and weight. If your child cant take or keep down oral medicine, ask your pharmacist for acetaminophen suppositories. You can get these without a prescription. Based on your conchita medical condition, ask your conchita health care provider if you should wake your child to give fever medicine. Sleep is important to help your child get better. Follow these tips when giving fever medicine: Dont give ibuprofen to children younger than 6 months old. Read the label before giving fever medicine. This is to make sure that you are giving the right dose. The dose should be right for your conchita age and weight. If your child is taking other medicine, check the list of ingredients. Look for acetaminophen or ibuprofen. If so, tell your con[place] health care provider before giving your child the medicine. This is to prevent a possible overdose. If your child isyounger than 2 years,talk with your [place] health care provider to find out the right medicine to use and how much to give. Dont give aspirin in a child under 18 years old who is ill with a fever. Aspirin may cause severe liver damage. Dont give ibuprofen if your child is vomiting constantly and is dehydrated. Once the fever is under control, keep giving either the acetaminophen or ibuprofen. Give whichever medicine works best. If either medicine alone doesnt keep the fever down, contact your [place] health care provider. Follow-up care Follow up with your [place] health care provider if your child isnt getting better. When to seek medical care Get prompt medical attention if any of these occur: Your child is 3 months old or younger and has a fever of 100.4F (38C) or higher. Get medical care right away because fever in young infants can be a sign of a dangerous infection. Your child has repeated fevers above 104F (40C) at any age. Pain that gets worse. A may show pain with crying that cant be soothed. Stiff or painful neck, headache, or repeated diarrhea or vomiting. Your child is unusually fussy, drowsy, or confused, or has a seizure. Rash or purple spots on the skin. Signs of dehydration, including no wet diapers for 8 hours, no tears when crying, sunken eyes, or dry mouth. Call your [place] health care provider if: Your child is 3 to 6 months old and has a fever of 102F (38.8C). Your child is 6 months to 2 years old and his or her fever doesnt get better in 24 hours. Your child is 2 years old or older and his or her fever doesnt get better after 3 days. Taking Your Child's Temperature If your child feels hot, then check the temperature. Under 3 months : Start with a AXILLARY temperature. If it is above 99.0 F (37.2 C), take a RECTAL temperature. 3 months to 4 years : Measure a RECTAL temperature, or an EAR temperature. Over 4 years : Measure an ORAL temperature. Rectal Temperature is the most accurate. Ear temperature is not as accurate as a rectal or oral temperature, but is more convenient and can be used in the 3 month to 4 year old. Other methods such as plastic strips , forehead devices , and pacifier thermometers are even less accurate and they are not recommended. If you do not know how to use a thermometer, ask your nurse or pharmacist. Oral Method: Normal: 98.6 F (37.0 C). Range of normal: Up to 99.0 F (37.2 C). Recommended Age: Use this method for children older than 4 or 5 years of age, only if cooperative. 1) Wait at least 20 minutes after drinking or eating before taking an oral temperature. 2) Place the tip of a the thermometer under the child's tongue. 3) Have child close lips gently, without biting on the thermometer. 4) Keep under the tongue until the thermometer beeps. 5) Remove thermometer and read the temperature in the display. 6) Clean the thermometer with alcohol, or soap and water after each use. Axillary Method (UNDER THE ARM): Normal: 97.6 F (36.6 C) Range of Normal: Up to 98.6 F (37.0 C) Recommended Age: Use this method for children under 4 years of age or any uncooperative child. 1) Make sure armpit is dry and the child does not have clothing between arm and chest. 2) Place the tip of the thermometer high up in the armpit. 4) Hold the child's arm snug against their body with the thermometer in place until it beeps. 5) Remove thermometer and read the temperature in the display. 6) Clean the thermometer with alcohol, or soap and water after each use. Rectal Method: Normal: 99.6 F (37.6 C). Range of Normal: Up to 100.4 F (38.0 C). Recommended age: Use this method for children under 4 years of age or any uncooperative child. 1) Lubricate the tip of a rectal thermometer with a lubricant such as Vaseline jelly or K-Y jelly. 2) Lay your child face down across your lap, or on his/her side with knees bent toward the chest. Spread buttocks so that the anus can be easily seen. 3) Hold the thermometer between your thumb and index finger with the edge of your hand resting on the buttocks. Slowly and gently insert thermometer into the anus about one inch. The tip should slide in easily. Do not force it since they may cause injury. 4) Do not let go of the thermometer! Hold it carefully in place until it beeps. 5) Remove thermometer and read the temperature in the display. 6) Clean the thermometer with alcohol, or soap and water after each use. When To Seek Help Call your doctor or return here if you have an infant younger than 3 months with a temperature of 100.4 F (38.0 C) or an older child with a fever higher than 104.0 F (40.0 C). Sinusitis [Abx Tx] The sinuses are air-filled spaces within the bones of the face. They connect to the inside of the nose. Sinusitis is an inflammation of the tissue lining the sinus cavity. Sinus inflammation can occur during a cold or hay-fever (allergies to pollens and other particles in the air) and cause symptoms of sinus congestion and fullness. A sinus infection causes fever, headache and facial pain. There is usually green or yellow drainage from the nose or into the back of the throat (post-nasal drip). Antibiotics are prescribed to treat this condition. Home Care: Drink plenty of water, hot tea, and other liquids to stay well hydrated. This thins the mucus and promotes sinus drainage. Apply heat to the painful areas of the face. Use a towel soaked in hot water. Or, padded products inspector trimmer the shower and direct the hot spray onto your face. This is a good way to inhale warm water vapor and get heat on your face at the same time. (Cover your mouth and nose with your hands so you can still breathe as you do this.) Use a vaporizer with products such as Crumbs [employer] (contains menthol) at night. Suck on peppermint, menthol or eucalyptus hard candies during the day. An expectorant containing guaifenesin (such as Robitussin), helps to thin the mucus and promote drainage from the sinuses. Smrj-dkv-erykdex decongestants may be used unless a similar medicine was prescribed. Nasal sprays work the fastest. Use one that contains phenylephrine (Samson-synephrine, Sinex and others) or oxymetazoline (Afrin). First blow the nose gently to remove mucus, then apply the drops. Do not use these medicines more often than directed on the label or for more than three days or symptoms may worsen. You may also use tablets containing pseudoephedrine (Sudafed). Many sinus remedies combine ingredients, which may increase side effects. Read the labels or ask the pharmacist for help. NOTE: Persons with high blood pressure should not use decongestants. They can raise blood pressure. Antihistamines are useful if allergies are a cause of your sinusitis. The mildest one is chlorpheniramine (available without a prescription). The dose for adults is 8-12mg three times a day. [NOTE: Do not use chlorpheniramine if you have glaucoma or if you are a man with trouble urinating due to an enlarged prostate.] Claritin (loratidine) is an antihistamine that causes less drowsiness and is a good alternative for daytime use. Do not use nasal rinses or irrigation during an acute sinus infection, unless advised by your doctor. Rinsing may spread the infection to other sinuses. You may use acetaminophen (Tylenol) or ibuprofen (Motrin, Advil) to control pain, unless another pain medicine was prescribed. [ NOTE: If you have chronic liver or kidney disease or ever had a stomach ulcer, talk with your doctor before using these medicines.] (Aspirin should never be used in anyone under 18 years of age who is ill with a fever. It may cause severe liver damage.) Finish the full course, even if you are feeling better after a few days. Follow Up with your doctor or this facility in one week or as instructed by our staff if not improving. Get Prompt Medical Attention if any of the following occur: Facial pain or headache becomes more severe Stiff neck Unusual drowsiness or confusion, or not acting like your normal self Swelling of the forehead or eyelids Vision problems including blurred or double vision Fever of 100.4F (38C) or higher, or as directed by your healthcare provider Seizure Conjunctivitis, Bacterial You have a bacterial infection in the membranes covering the eye. The most common symptoms include a thick discharge from the eye, swollen eyelids, redness, eyelids sticking together upon awakening, and a gritty or scratchy feeling in the eye. The infection takes about 7-10 days to resolve with treatment. Home Care: Use prescribed eyedrops or ointment as directed to treat the infection. Apply a warm pack (towel soaked in warm water) to the affected eye 3-4 times a day. Do this just before applying medicine to the eye. Use a warm, wet cloth to wipe away crusting of the eyelids in the morning. This is caused by mucus drainage during the night. You may also use saline irrigating solution or artificial tears to rinse away mucus inside the eye. Do not put a patch over the eye. Wash your hands before and after touching the infected eye. This is to prevent spreading the infection to the other eye, and to other people. Do not share your towels or washcloths with others. You may use acetaminophen (Tylenol) or ibuprofen (Motrin, Advil) to control pain, unless another medicine was prescribed. [NOTE: If you have chronic liver or kidney disease or ever had a stomach ulcer or GI bleeding, talk with your doctor before using these medicines.] Do not wear contact lenses until your eyes have healed and all symptoms are gone. Follow Up with your doctor or this facility as directed, or if there has not been improvement within 5 days. Get Prompt Medical Attention if any of the following occur: Worsening vision Increasing pain in the eye Increasing swelling or redness of the eyelid Redness spreading around the eye Conjunctivitis, Non-Specific The membrane that covers your eye is inflamed. Any itching, burning or irritation should go away within the next 24 hours. Conjunctivitis may be related to a particle that was in your eye. If so, it was washed out with your tears or irrigation treatment. Being exposed to liquid chemicals or fumes may also cause this reaction. Your condition does not appear to be due to an eye infection. Home Care: Apply a cold pack (ice in a plastic bag, wrapped in a towel) over the eye for 20 minutes at a time. This will reduce pain. Eye drops may be prescribed to reduce irritation or redness. Otherwise, Visine or similar pgnl-gau-drzhefa decongestant eye drops may be used. You may use acetaminophen (Tylenol) or ibuprofen (Motrin, Advil) to control pain, unless another medicine was prescribed. [ NOTE: If you have chronic liver or kidney disease or ever had a stomach ulcer or GI bleeding, talk with your doctor before using these medicines.] Follow Up with your doctor or this facility as directed, or if your symptoms have not improved after 24 hours. Get Prompt Medical Attention if any of the following occur: Increased eyelid swelling Increase in eye pain Increased redness or drainage from the eye Failure of normal vision to return within 24-48 hours. Fever Control (Adult) A fever is a natural reaction of the body to an illness. In most cases, the temperature itself is not harmful. It actually helps the body fight infections. A fever does not need to be treated unless you feel very uncomfortable. Home Care If you feel warm, check your temperature. If you feel very uncomfortable and your temperature is at or higher than 100.4F (38C) oral, you may take acetaminophen (Tylenol) every 4 to 6 hours. If you cant take or keep down oral medicine, ask your pharmacist for Tylenol suppositories, which you can get without a prescription. If the fever does not respond to acetaminophen within 1 hour, take ibuprofen (Advil or Motrin). If this works, keep taking the ibuprofen every 6 to 8 hours. Note: If you have chronic liver or kidney disease or ever had a stomach ulcer or GI bleeding, talk with your doctor before using these medications. If either medication alone does not keep the fever down, you may alternate the two medicines every 3 to 4 hours, only if your healthcare provider has instructed you to do so. For example, take Motrin then wait 3 hours, take Tylenol then wait 3 hours, take Motrin, and so on. Follow your healthcare providers instructions exactly. Clothing: Keep clothing light because excess body heat is lost through the skin. The fever will go up if you wear extra layers or wrap in blankets. Fluids: Fever causes the body to lose water through evaporation. Drink plenty of fluids such as water, juice, clear sodas, seth gabbi, or lemonade. Do not use aspirin in anyone under 18 years of age who is ill with a fever. It can cause severe liver damage. Follow Up with your doctor or as advised by our staff if you do not get better after 48 hours. Get Prompt Medical Attention if any of the following occur: Fever does not get better after taking fever medication Fast or difficult breathing Earache, sinus pain, stiff or painful neck, headache, repeated diarrhea or vomiting You feel unusually irritable, drowsy, or confused A rash appears You feel weak or dizzy, or that you might faint Triamcinolone Acetonide Nasal spray What is this medicine? TRIAMCINOLONE (trye am S[place]) nasal spray is a corticosteroid. It is used to treat the nasal symptoms of seasonal and year round allergies. How should I use this medicine? This medicine is for use in the nose. Follow the directions on your prescription label. This medicine works best if used regularly. Do not use more often than directed. Make sure that you are using your nasal spray correctly. Ask you doctor or health care provider if you have any questions. Talk to your supervising editor trailer regarding the use of this medicine in children. While this drug may be prescribed for children as young as 2 years of age for selected conditions, precautions do apply. What side effects may I notice from receiving this medicine? Side effects that you should report to your doctor or health assurance services manager health care as soon as possible: allergic reactions like skin rash, itching or hives, swelling of the face, lips, or tongue change in vision dizziness infection nosebleed, burning in the nose trouble breathing, wheezing unusual bruising white patches or sores in the nose Side effects that usually do not require medical attention (report to your doctor or health assurance services manager health care if they continue or are bothersome): congestion cough headache nausea runny nose sneezing What may interact with this medicine? Interactions are not expected. What if I miss a dose? If you miss a dose, take it as soon as you can. If it is almost time for your next dose, take only that dose. Do not take double or extra doses. Where should I keep my medicine? Keep out of the reach of children. Store at room temperature between 20 and 25 degrees C (68 and 77 degrees F). Throw away the canister after 120 sprays or after the expiration date, whichever comes first. What should I tell my health care provider before I take this medicine? They need to know if you have any of these conditions: infection, like tuberculosis, herpes, or fungal infection recent surgery or injury of nose or sinuses taking corticosteroids by mouth an unusual or allergic reaction to triamcinolone, corticosteroids, other medicines, foods, dyes, or preservatives or trying to get breast-feeding What should I watch for while using this medicine? Check with your doctor or health assurance services manager health care if your symptoms do not improve in 1 week of regular use or if they get worse. Do not come in contact with people who have chickenpox or the measles while you are taking this medicine. If you do, call your doctor right away. Amoxicillin Trihydrate, Clavulanate Potassium Oral tablet What is this medicine? AMOXICILLIN; CLAVULANIC ACID (a mox i ORQUIDEA in; KEYONNA jackson lucian ic id) is a penicillin antibiotic. It is used to treat certain kinds of bacterial infections. It will not work for colds, flu, or other viral infections. How should I use this medicine? Take this medicine by mouth with a full glass of water. Follow the directions on the prescription label. Take at the start of a meal. Do not crush or chew. If the tablet has a score line, you may cut it in half at the score line for easier swallowing. Take your medicine at regular intervals. Do not take your medicine more often than directed. Take all of your medicine as directed even if you think you are better. Do not skip doses or stop your medicine early. Talk to your supervising editor trailer regarding the use of this medicine in children. Special care may be needed. What side effects may I notice from receiving this medicine? Side effects that you should report to your doctor or health assurance services manager health care as soon as possible: allergic reactions like skin rash, itching or hives, swelling of the face, lips, or tongue breathing problems dark urine fever or chills, sore throat redness, blistering, peeling or loosening of the skin, including inside the mouth seizures trouble passing urine or change in the amount of urine unusual bleeding, bruising unusually weak or tired white patches or sores in the mouth or throat Side effects that usually do not require medical attention (report to your doctor or health assurance services manager health care if they continue or are bothersome): diarrhea dizziness headache nausea, vomiting stomach upset vaginal or anal irritation What may interact with this medicine? allopurinol anticoagulants control pills methotrexate probenecid What if I miss a dose? If you miss a dose, take it as soon as you can. If it is almost time for your next dose, take only that dose. Do not take double or extra doses. Where should I keep my medicine? Keep out of the reach of children. Store at room temperature below 25 degrees C (77 degrees F). Keep container tightly closed. Throw away any unused medicine after the expiration date. What should I tell my health care provider before I take this medicine? They need to know if you have any of these conditions: bowel disease, like colitis kidney disease liver disease mononucleosis an unusual or allergic reaction to amoxicillin, penicillin, cephalosporin, other antibiotics, clavulanic acid, other medicines, foods, dyes, or preservatives or trying to get breast-feeding What should I watch for while using this medicine? Tell your doctor or health assurance services manager health care if your symptoms do not improve. Do not treat diarrhea with over the counter products. Contact your doctor if you have diarrhea that lasts more than 2 days or if it is severe and watery. If you have diabetes, you may get a false-positive result for sugar in your urine. Check with your doctor or health assurance services manager health care. control pills may not work properly while you are taking this medicine. Talk to your doctor about using an extra method of control. Ibuprofen Oral tablet What is this medicine? IBUPROFEN (eye BYOO proe fen) is a non-steroidal anti-inflammatory drug (NSAID). It is used for dental pain, fever, headaches or migraines, osteoarthritis, rheumatoid arthritis, or painful monthly periods. It can also relieve minor aches and pains caused by a cold, flu, or sore throat. How should I use this medicine? Take this medicine by mouth with a glass of water. Follow the directions on the prescription label. Take this medicine with food if your stomach gets upset. Try to not lie down for at least 10 minutes after you take the medicine. Take your medicine at regular intervals. Do not take your medicine more often than directed. A special MedGuide will be given to you by the pharmacist with each prescription and refill. Be sure to read this information carefully each time. Talk to your supervising editor trailer regarding the use of this medicine in children. Special care may be needed. What side effects may I notice from receiving this medicine? Side effects that you should report to your doctor or health assurance services manager health care as soon as possible: allergic reactions like skin rash, itching or hives, swelling of the face, lips, or tongue black or bloody stools, blood in the urine or in vomit breathing problems changes in vision chest pain general ill feeling or flu-like symptoms nausea or vomiting redness, blistering, peeling or loosening of the skin, including inside the mouth slurred speech or weakness on one side of the body stomach pain unexplained weight gain or swelling unusually weak or tired yellowing of eyes or skin Side effects that usually do not require medical attention (report to your doctor or health assurance services manager health care if they continue or are bothersome): constipation or diarrhea dizziness gas or heartburn stomach upset What may interact with this medicine? Do not take this medicine with any of the following medications: cidofovir ketorolac methotrexate pemetrexed This medicine may also interact with the following medications: alcohol aspirin diuretics lithium other drugs for inflammation like prednisone warfarin What if I miss a dose? If you miss a dose, take it as soon as you can. If it is almost time for your next dose, take only that dose. Do not take double or extra doses. Where should I keep my medicine? Keep out of the reach of children. Store at room temperature between 15 and 30 degrees C (59 and 86 degrees F). Keep container tightly closed. Throw away any unused medicine after the expiration date. What should I tell my health care provider before I take this medicine? They need to know if you have any of these conditions: asthma cigarette smoker drink more than 3 alcohol containing drinks a day heart disease or circulation problems such as heart failure or leg edema (fluid retention) high blood pressure kidney disease liver disease stomach bleeding or ulcers an unusual or allergic reaction to ibuprofen, aspirin, other NSAIDS, other medicines, foods, dyes, or preservatives or trying to get breast-feeding What should I watch for while using this medicine? Tell your doctor or healthcare professional if your symptoms do not start to get better or if they get worse. This medicine does not prevent heart attack or stroke. In fact, this medicine may increase the chance of a heart attack or stroke. The chance may increase with longer use of this medicine and in people who have heart disease. If you take aspirin to prevent heart attack or stroke, talk with your doctor or health assurance services manager health care. Do not take other medicines that contain aspirin, ibuprofen, or naproxen with this medicine. Side effects such as stomach upset, nausea, or ulcers may be more likely to occur. Many medicines available without a prescription should not be taken with this medicine. This medicine can cause ulcers and bleeding in the stomach and intestines at any time during treatment. Ulcers and bleeding can happen without warning symptoms and can cause . To reduce your risk, do not smoke cigarettes or drink alcohol while you are taking this medicine. You may get drowsy or dizzy. Do not drive, use machinery, or do anything that needs mental alertness until you know how this medicine affects you. Do not stand or sit up quickly, especially if you are an older patient. This reduces the risk of dizzy or fainting spells. This medicine can cause you to bleed more easily. Try to avoid damage to your teeth and gums when you brush or floss your teeth. Trimethoprim Sulfate, Polymyxin B Sulfate Eye drops, solution What is this medicine? POLYMYXIN B and TRIMETHOPRIM (madisyn i MIX in B and trye METH oh prim) eye drops treat certain eye infections caused by bacteria. How should I use this medicine? This medicine is used in the eye. Follow the directions on the prescription label. Wash your hands before and after use. Tilt your head back slightly. Pull your lower eyelid down gently to form a pouch. Do not touch the tip of the dropper to your eye, fingertips, or other surface. Squeeze the prescribed number of drops into the pouch. Close the eye gently to spread the drops. Use your medicine at regular intervals. Do not take your medicine more often than directed. Use all of your medicine as directed even if you think your are better. Do not skip doses or stop your medicine early. Talk to your supervising editor trailer regarding the use of this medicine in children. While this drug may be prescribed for children and infants for selected conditions, precautions do apply. What side effects may I notice from receiving this medicine? Side effects that you should report to your doctor or health assurance services manager health care as soon as possible: burning, stinging, or swelling change in vision or blurred vision that will not go away eye pain itching and redness rash Side effects that usually do not require medical attention (report to your doctor or health assurance services manager health care if they continue or are bothersome): temporary blurred vision after applying temporary watering or stinging What may interact with this medicine? Interactions are not expected. Do not use any other eye products without advice of your doctor or health assurance services manager health care. What if I miss a dose? If you miss a dose, use it as soon as you can. If it is almost time for your next dose, use only that dose. Do not use double or extra doses. Where should I keep my medicine? Keep out of the reach of children. Store at room temperature 15 to 25 degrees C (59 to 77 degrees F). Protect from light. To prevent the spread of infection, it is best to throw away any unused eye drops after you finish the course of treatment. Throw away any unused medicine after the expiration date. What should I tell my health care provider before I take this medicine? They need to know if you have any of these conditions: wear contact lenses an unusual or allergic reaction to polymyxin B, trimethoprim, other medicines, foods, dyes, or preservatives or trying to get breast-feeding What should I watch for while using this medicine? Check with your doctor or health assurance services manager health care if your condition does not get better after 5 days, or if it gets worse. If you wear contact lenses, ask when you can use your lenses again. A burning or stinging reaction that does not go away may mean you are allergic to this product. Stop use and call your doctor or health assurance services manager health care. To prevent the spread of infection, do not share eye products or other personal items with anyone else. You have been given the following additional information: Febrile Illness, Uncertain Cause (Adult) Fever Control (Child) Thermometer Use Sinusitis, Abx Tx Conjunctivitis, Bacterial Conjunctivitis, Non-Specific Fever Control (Adult) Triamcinolone Acetonide Nasal spray Amoxicillin Trihydrate, Clavulanate Potassium Oral tablet Ibuprofen Oral tablet Trimethoprim Sulfate, Polymyxin B Sulfate Eye drops, solution Do not work today, for two days. (Electronically signed by Louise Enamorado A.R.N.P. 04/18/2017 23:49)
== END 2017-04-18 23:00 | disposition home or self-care (01) ==
LOC: ED SRH 20:11
DX: J01.20 Acute ethmoidal sinusitis, unspecified (principal); J01.10 Acute frontal sinusitis, unspecified; R50.9 Fever, unspecified; H10.023 Other mucopurulent conjunctivitis, bilateral; Z87.891 Personal history of nicotine dependence